=== PATIENT | female | born 1985 | race Caucasian/White ===

== ENCOUNTER 2024-06-27 21:13 | Emergency (ER) | payer MEDICARE, OTHER ==
[2024-06-27 21:31] VITALS: TEMP 98.1
[2024-06-27] MEDS: IBUPROFEN 800 MG TAB PO STA (22:10)
--- NOTE | 2024-06-27 22:19 | XR ---
EXAMINATION TYPE: XR tibia fibula RT, XR ankle complete RT DATE OF EXAM: 06/27/2024 CLINICAL HISTORY: Injury with pain TECHNIQUE: Two views of the right leg are obtained. 3 views right ankle. COMPARISON: None. FINDINGS: There is no acute fracture or dislocation seen in the right tibia or fibula. No acute disp laced fracture in the right ankle. Ankle mortise symmetry is preserved. Surgical changes base of the first metatarsal is incidentally noted. Mild to moderate soft tissue swelling anteriorly and laterall y at level of the ankle joint is seen. IMPRESSION: Soft tissue swelling is present anchored. There is no acute fracture or dislocation seen in the right leg or ankle.
--- NOTE | 2024-06-27 22:49 | ED ---
General Adult HPI - General Chief complaint: Extremity Injury, Lower Stated complaint: fall Time Seen by Provider: 06/27/24 21:50 Source: patient, family, RN notes reviewed, old records reviewed Mode of arrival: wheelchair Limitations: altered mental status - History of Present Illness Initial comments: Patient is a 39-year-old female who presents emergency department complaining of fall. Has a history of Down syndrome, early dementia, seizure disorder. Has a high pain tolerance. Patient was walking downstairs when she missed the bottom step and inverted her ankle. Did not suffer any other injuries. Did not hit her head. Is acting her normal baseline. Is complaining of pain over the lateral aspect of the right foot. Is not on blood thinners. Presents for further evaluation with family. - Related Data Allergies Allergy/AdvReac Type Severity Reaction Status Date / Time carbamazepine [From Tegretol] Allergy Unknown Verified 06/27/24 21:24 Penicillins Allergy Swelling Verified 06/27/24 21:24 Pertussis Vaccines Allergy Swelling Verified 06/27/24 21:24 levetiracetam [From Keppra] AdvReac Unknown Verified 06/27/24 21:24 Review of Systems ROS Statement: Those systems with pertinent positive or pertinent negative responses have been documented in the HPI. Review of Systems: CONST: Denies fever EYES: Denies blurry vision ENT: Denies nasal congestion C/V: Denies Chest pain RESP: Denies shortness of breath GI: Denies abdominal pain : Denies dysuria SKIN: Denies rash. MSK: Endorses right ankle pain NEURO: Denies headache ROS Other: All systems not noted in ROS Statement are negative. Past Medical History Past Medical History: Seizure Disorder Additional Past Medical History / Comment(s): heart murmur, down syndrome, early dementia, colitis History of Any Multi-Drug Resistant Organisms: None Reported Past Surgical History: Cholecystectomy, Tonsillectomy Past Psychological History: Anxiety Smoking Status: Never smoker Past Alcohol Use History: None Reported Past Drug Use History: None Reported General Exam - General Exam Comments Initial Comments: General: Appears in no acute distress. HEAD: Normal with no signs of head trauma. EYES: EOMI. ENT: Hearing grossly intact. RESPIRATORY: No respiratory distress. C/V: Regular rate and rhythm. ABD: Abdomen is nondistended. EXT: Edema over the lateral malleolus of the right ankle. No significant tenderness to palpation of the medial malleolus, base of the foot. Appears to have normal range of motion. No sensory deficits. 2+ peripheral pulses in the right foot. SKIN: No rashes or lesions observed on exposed skin. NEURO: Alert and oriented. Limitations: altered mental status Course Vital Signs 06/27/24 21:24 Temperature 98.1 F Pulse Rate 56 L Respiratory 16 Rate Blood Pressure 101/62 O2 Sat by Pulse 99 Oximetry Medical Decision Making - Medical Decision Making Was pt. sent in by a medical professional or institution (, PA, FIELD CONTRACTOR, urgent care, hospital, or alf...) When possible be specific @ -No Did you speak to anyone other than the patient for history (EMS, parent, family, police, friend...)? What history was obtained from this source @ -Family members at bedside provided most of the patient's past medical history and current HPI. Did you review nursing and triage notes (agree or disagree)? Why? @ -I reviewed and agree with nursing and triage notes Were old charts reviewed (outside hosp., previous admission, EMS record, old EKG, old radiological studies, urgent care reports/EKG's, alf records)? Report findings @ -No old charts were reviewed Differential Diagnosis (chest pain, altered mental status, abdominal pain women, abdominal pain men, vaginal bleeding, weakness, fever, dyspnea, syncope, headache, dizziness, GI bleed, back pain, seizure, CVA, palpatations, mental health, musculoskeletal)? @ -Differential Musculoskeletal Muscular strain, contusion, ligament sprain, fracture, arthritis, septic arthritis, bursitis, cellulitis, muscle spasm, nerve compression, DVT, arterial occlusion, herpes zoster, electrolyte abnormality, tumor.... This is not meant to be in all inclusive list EKG interpreted by me (3pts min.). @ -None done X-rays interpreted by me (1pt min.). @ -X-rays of the right tib-fib and ankle negative for any obvious fracture. Significant edema over the lateral malleolus. CT interpreted by me (1pt min.). @ -None done U/S interpreted by me (1pt. min.). @ -None done What testing was considered but not performed or refused? (CT, X-rays, U/S, labs)? Why? @ -None What meds were considered but not given or refused? Why? @ -None Did you discuss the management of the patient with other professionals (professionals i.e. , PA, FIELD CONTRACTOR, lab, RT, psych nurse, protective services social worker, stamping press operator, teacher, court officer, field nurse case manager)? Give summary @ -No Was smoking cessation discussed for >3mins.? @ -No Was critical care preformed (if so, how long)? @ -No Were there social determinants of health that impacted care today? How? (Homelessness, low income, unemployed, alcoholism, drug addiction, transportation, low edu. Level, literacy, decrease access to med. care, penitentiary, re hab)? @ -No Was there de-escalation of care discussed even if they declined (Discuss DNR or withdrawal of care, Hospice)? DNR status @ -No What co-morbidities impacted this encounter? (DM, HTN, Smoking, COPD, CAD, Cancer, CVA, ARF, Chemo, Hep., AIDS, mental health diagnosis, sleep apnea, morbid obesity)? @ -Early onset dementia, Down syndrome Was patient admitted / discharged? Hospital course, mention meds given and route, prescriptions, significant lab abnormalities, going to OR and other pertinent info. @ -Based on patient's presentation and physical exam, presents with right ankle injury. No other obvious injuries from fall. Will obtain x-rays of the right ankle as well as tib-fib. Family and patient in agreement this plan. Patient be given Motrin for analgesia. Imaging negative for any obvious fracture or injury. I updated the patient as well as family. We will wrap the patient's right ankle with an Evin bandage and instructions to ice, elevate, rest. Use [id number] analgesia medications for pain control. Follow-up with PCP. Return if worsening symptoms. Patient in agreement this plan. Patient's family in agreement this plan. I instructed the patient to follow up with their PCP in the next 1-3 days. I explained that the patient should return to the emergency department if they experience any worsening symptoms. Strict return precautions were discussed with the patient. The patient expressed understanding of these instructions. I answered all questions that the patient had. The patient was discharged home in good condition with their prescriptions and follow up information. Undiagnosed new problem with uncertain prognosis? @ -No Drug Therapy requiring intensive monitoring for toxicity (Heparin, Nitro, Insulin, Cardizem)? @ -No Were any procedures done? @ -No Diagnosis/symptom? @ -Right ankle sprain Acute, or Chronic, or Acute on Chronic? @ -Acute Uncomplicated (without systemic symptoms) or Complicated (systemic symptoms)? @ -Uncomplicated Side effects of treatment? @ -No Exacerbation, Progression, or Severe Exacerbation? @ -No Poses a threat to life or bodily function? How? (Chest pain, [place], [place], pneumonia, PE, COPD, DKA, ARF, appy, cholecystitis, CVA, Diverticulitis, Homicidal, Suicidal, threat to staff... and all critical care pts) @ -Unlikely Disposition Clinical Impression: Right ankle sprain Disposition: HOME SELF-CARE Condition: Good Instructions (If sedation given, give patient instructions): Ankle Sprain (ED) Is patient prescribed a controlled substance at d/c from ED?: No Referrals: Carol Shaw MD [Primary Care Provider] - 1-2 days Time of Disposition: 10:45
[2024-06-27 23:05] VITALS: BP 98/63; PULSE 57; RESP 18
== END 2024-06-27 23:06 | disposition home or self-care (01) ==
LOC: EC 21:13
CPT/HCPCS: 99283